=== PATIENT | male | born 2000 | race African-American/Black ===

== ENCOUNTER 2020-03-27 04:16 | Emergency (ER) | payer SELFPAY ==
[~2020-03-27] VITALS: Ht 177.8 cm; Wt 91.0 kg
[2020-03-27 04:21] VITALS: BP 135/81
== END 2020-03-27 05:19 | disposition home or self-care (01) ==
LOC: ER 04:16
DX: T40.991A Poisoning by other psychodysleptics [hallucinogens], accidental (unintentional), initial encounter (principal); T51.0X1A Toxic effect of ethanol, accidental (unintentional), initial encounter; R45.1 Restlessness and agitation; Y92.89 Other specified places as the place of occurrence of the external cause
CPT/HCPCS: 99283